=== PATIENT | male | born 1990 | race Two or more races ===

== ENCOUNTER 2021-08-26 12:54 | Emergency (ER) | payer SELFPAY ==
[2021-08-26] MEDS ORDERED: AZIT250T PO (17:31)
== END 2021-08-26 13:24 | disposition left against medical advice (07) ==
LOC: ER 12:54
DX: R05.9 Cough, unspecified (principal); Z53.21 Procedure and treatment not carried out due to patient leaving prior to being seen by health care provider

== ENCOUNTER 2021-08-26 14:00 | Emergency (ER) | payer SELFPAY ==
[~2021-08-26] VITALS: Ht 180.3 cm; Wt 70.0 kg
[2021-08-26 15:10] VITALS: BP 118/67
[2021-08-26] MEDS ORDERED: KETOROLAC 60 MG/2 ML VIAL. IM ONE (15:45)
--- NOTE | 2021-08-26 16:00 | PHYS DOC ---
Past Medical History Past Medical History: No Pertinent History Past Surgical History: No Surgical History Additional Past Surgical Histo: FEMORAL HEAD REPAIR WITH SCREWS Smoking Status: Current Every Day Smoker Alcohol Use: Occasionally General Adult EDM: Chief Complaint: COUGH HPI: HPI: Patient is a 31-year-old male that presents today because he is "very sick" patient states that over the last couple days he has had increased body aches, cough, fever and overall fatigue. He states he has known exposure to people with COVID-19. He states that he does not have any vaccines. Review of Systems: Review of Systems: Constitutional: fever or chills. [] Eyes: Denies change in visual acuity. [] HENT: nasal congestion, denies sore throat. [] Respiratory: cough or denies shortness of breath. [] Cardiovascular: Denies chest pain or edema. [] GI: Denies abdominal pain, nausea, vomiting, bloody stools or diarrhea. [] : Denies dysuria. [] Musculoskeletal: Body aches Integument: Denies rash. [] Neurologic: Denies headache, focal weakness or sensory changes. [] Endocrine: Denies polyuria or polydipsia. [] Lymphatic: Denies swollen glands. [] Psychiatric: Denies depression or anxiety. [] Heart Score: C/O Chest Pain: N/A Risk Factors: Risk Factors: DM, Current or recent (<one month) smoker, HTN, HLP, family history of CAD, obesity. Risk Scores: Score 0 - 3: 2.5% MACE over next 6 weeks - Discharge Home Score 4 - 6: 20.3% MACE over next 6 weeks - Admit for Clinical Observation Score 7 - 10: 72.7% MACE over next 6 weeks - Early Invasive Strategies Current Medications: Current Medications Medications (Trade) Dose Ordered Sig/Jono Start Time Stop Time Status Last Admin Dose Admin Ketorolac Tromethamine (Toradol Im) 60 mg 1X ONCE 08/26/21 15:45 08/26/21 15:46 DC Allergies: Allergies: Allergies Coded Allergies Type Severity Reaction Last Updated Verified No Known Drug Allergies 08/26/21 No Physical Exam: PE: Constitutional: Well developed, well nourished, mild distress, non-toxic appearance. [] HENT: Normocephalic, atraumatic, bilateral external ears normal, oropharynx moist, no oral exudates, nose normal. Tympanic membranes bulging no erythema noted [] Eyes: PERRLA, EOMI, conjunctiva normal, no discharge. [] Neck: Normal range of motion, no tenderness, supple, no stridor. [] Cardiovascular:Heart rate regular rhythm, no murmur [] Lungs & Thorax: Bilateral breath sounds clear to auscultation [] Abdomen: Bowel sounds normal, soft, no tenderness, no masses, no pulsatile masses. [] Skin: Warm, dry, no erythema, no rash. [] Back: No tenderness, no CVA tenderness. [] Extremities: No tenderness, no cyanosis, no clubbing, ROM intact, no edema. [] Neurologic: Alert and oriented X 3, normal motor function, normal sensory function, no focal deficits noted. [] Psychologic: Affect normal, judgement normal, mood normal. [] Current Patient Data: Labs: Laboratory Tests Test 08/26/21 16:15 Influenza Type A Antigen Negative Influenza Type B Antigen Negative Current Medications Medications (Trade) Dose Ordered Sig/Jono Route PRN Reason Start Time Stop Time Status Last Admin Dose Admin Ketorolac Tromethamine (Toradol Im) 60 mg 1X ONCE IM 08/26/21 15:45 08/26/21 15:46 DC 08/26/21 15:45 Vital Signs: Vital Signs Date Time Temp Pulse Resp B/P (MAP) Pulse Ox O2 Delivery O2 Flow Rate FiO2 08/26/21 15:10 99.0 88 16 118/67 (84) 98 Room Air 99.0 Vital Signs Date Time Temp Pulse Resp B/P (MAP) Pulse Ox O2 Delivery O2 Flow Rate FiO2 08/26/21 15:10 99.0 88 16 118/67 (84) 98 Room Air 99.0 EKG: EKG: [] Radiology/Procedures: Radiology/Procedures: REASON: cough PROCEDURE: CHEST AP ONLY EXAM: Chest, single view. HISTORY: Cough. COMPARISON: None. FINDINGS: A frontal view of the chest is obtained. There is suspected right infrahilar interstitial infiltrate. There is no consolidation, pleural effusion or pneumothorax. The heart is normal in size. There are nodular opacities overlying the right upper lobe due to overlying button artifact. IMPRESSION: Suspected right infrahilar interstitial infiltrate. Electronically signed by: Diana Zarco MD (08/26/2021 4:01 PM) [id number][] Course & Med Decision Making: Course & Med Decision Making Pertinent Labs and Imaging studies reviewed. (See chart for details) 1715 patient states he is feeling much better. Did review radiology results and lab results with him. Did inform him that the radiologist was concerned for an infiltrate on his chest x-ray we will treat him for community-acquired pneumonia. I will place him on Zithromax. I also informed him that since we do not have his COVID PCR back that he will need to quarantine until that comes back within the next 24 to 48 hours. He verbalized understanding of this and is agreeable to the plan of care. Dragon Disclaimer: PhishMe Disclaimer: This electronic medical record was generated, in whole or in part, using a voice recognition dictation system. Departure Departure Impression: Primary Impression: Suspected 2019 novel coronavirus infection Additional Impression: Community acquired pneumonia Qualified Codes: J18.9 - Pneumonia, unspecified organism Disposition: HOME / SELF CARE / HOMELESS Condition: STABLE Referrals: NO PCP (PCP) Patient Instructions: Pneumonia, Adult Additional Instructions: Take [id number] Tylenol and/or ibuprofen as needed for fever and pain and body aches. Increase by mouth fluid to stay well-hydrated while ill. Take Zithromax as directed. [id number] decongestants can help with ear fullness and nasal congestion. Follow-up with your primary care physician if no better in 10 days. You have been tested for or diagnosed with COVID-19. It is an infection caused by a new type of coronavirus. COVID-19 will cause cold-like or mild flu symptoms in most. It can cause more severe symptoms like problems breathing in some. There is no treatment for COVID-19. The body will clear the infection over time. Self-care will help to ease discomfort. Steps to Take: Self-Care Rest as needed. Healthy habits may help you feel better. Steps include: Choose healthy foods including fruits and vegetables. Drink water throughout the day. Get plenty of sleep each night. If you smoke, try to quit. It may ease breathing. Avoid alcohol. Keep Others Healthy The virus can spread to others. Droplets are released every time you sneeze or cough. The droplets can get into the mouth, nose, or eyes of people near you and lead to infection. To lower the chances of spreading COVID-19 to others: Stay at home until your doctor has said it is safe to leave. If you tested positive this will mean staying isolated until both of the following are true: At least 10 days have passed since the start of illness. You are free of fever for at least 72 hours without the use of medicine. During this time: - Avoid public areas, events, or transportation. Do not return to work or school until your doctor has said it is safe to do so. - Call ahead if you need to go to a medical center. Let them know you may have COVID-19. It will help them guide you where to go. They may also ask you to wear a facemask when you come to the office. - If you call for emergency medical services, let them know you may have COVID- 19. While at home: - Try to avoid close contact with others. Stay about 6 feet away. - If possible, spend most of your time in a separate room from others. - Use a face mask if you will be in close contact with others such as sharing a room or vehicle. - Have someone wipe down common surfaces in the home. Use household precinct police sergeant every day on areas like doorknobs, counters, or sinks. - Cough or sneeze into a tissue. Throw the tissue away right after use. If a tissue is not available, cough or sneeze into your elbow. - Wash your hands often. Wash them after sneezing or coughing. Use soap and water and wash for at least 20 seconds. Alcohol based hand cooker cleaner can be used if soap and water is not available. - Do not prepare food for others. Avoid sharing personal items like forks, spoons, or toothbrushes. - Avoid close contact with pets while you are sick. There is no evidence of the virus passing to pets. This is a safety step until more is known about this virus. Isolation can be frustrating. Social interaction can help. Keep in touch with friends and family through phone and tech options. You can still interact with others in your home, just keep a safe distance of about 6 feet. Follow-up: Your doctors office will check in with you to see if there are any changes in your health. You may be asked to keep track of symptoms to share with them. They will also let you know when you are clear to be in public again. Problems to Look Out For: Contact your doctor if your recovery is not going as you expect. Get emergency care if you have problems such as: - Trouble breathing - Nonstop chest pain or pressure - Changes in awareness, confusion, or problems waking - Lips or face have bluish color - Worsening of symptoms If you think you have an emergency, call for emergency medical services right away. As [facility] from [facility] [place] [facility] Azithromycin (ZITHROMAX) 250 Mg Tablet 1 PKG PO UD, #6 TAB take two tablets today then take one tablet daily for 4 days. Prov: DASHA BIANCHI WELFARE WORKER 08/26/21 DASHA BIANCHI WELFARE WORKER Aug 26, 2021 15:59
--- NOTE | 2021-08-26 16:03 | RAD ---
EXAM: Chest, single view. HISTORY: Cough. COMPARISON: None. FINDINGS: A frontal view of the chest is obtained. There is suspected right infrahilar interstitial i nfiltrate. There is no consolidation, pleural effusion or pneumothorax. The heart is normal in size. There are nodular opacities overlying the right upper lobe due to overlying button artifact. IMPRESSION: Suspected right infrahilar interstitial infiltrate. Electronically signed by: Diana Zarco MD (08/26/2021 4:01 PM) [id number]
[2021-08-26 16:39] LABS: INFLUENZA A PATIENT NEGATIVE (NEGATIVE); INFLUENZA B PATIENT NEGATIVE (NEGATIVE)
[2021-08-26] MEDS ORDERED: AZIT250T PO (17:31)
--- NOTE | 2021-08-31 13:34 | NUR ---
IP: Informed pt of negative covid test. Pt verbalized understanding.
== END 2021-08-26 17:40 | disposition home or self-care (01) ==
LOC: ER 14:00
DX: J18.9 Pneumonia, unspecified organism (principal); Z20.822 Contact with and (suspected) exposure to COVID-19; F17.200 Nicotine dependence, unspecified, uncomplicated
CPT/HCPCS: 71045; 87804; 96372; 99284; J1885; U0003; U0005